=== PATIENT | male | born 1980 | race Caucasian/White ===

== ENCOUNTER 2018-08-03 07:03 | Emergency (ER) | payer SELFPAY ==
[~2018-08-03] VITALS: Ht 165.1 cm; Wt 65.9 kg
[~2018-08-03 07:03] MED LIST: NOCURR
[2018-08-03 07:35] VITALS: BP 119/71
== END 2018-08-03 08:04 | disposition home or self-care (01) ==
LOC: EMS 07:03
DX: M25.561 Pain in right knee (principal); M79.89 Other specified soft tissue disorders; F11.90 Opioid use, unspecified, uncomplicated
CPT/HCPCS: 29505